=== PATIENT | male | born 1955 | race Caucasian/White ===

== ENCOUNTER → 2017-05-05 | Outpatient (REF) ==
[~2017-05-05] MED LIST: SIMVASTATIN10 MG PO
== END ==
LOC: WSOH 13:47
DX: Z02.89 Encounter for other administrative examinations (principal)

== ENCOUNTER → 2024-05-11 | Outpatient (CLI) | payer OTHER | LOC: COL.RAD 09:36 | DX: Z12.2 Encounter for screening for malignant neoplasm of respiratory organs (principal); F17.200 Nicotine dependence, unspecified, uncomplicated ==